=== PATIENT | male | born 2000 | race Caucasian/White ===

== ENCOUNTER 2021-03-25 10:52 | Emergency (ER) | payer SELFPAY ==
[2021-03-25] MEDS ORDERED: Morphine 10 MG/ML VIAL ONE (11:32)
[2021-03-25] MEDS ORDERED: HYDROcodone/Acetaminophen 5/325 mg Tablet ONE (12:20)
== END 2021-03-25 12:24 | disposition home or self-care (01) ==
LOC: BURERS 10:52
DX: M79.5 Residual foreign body in soft tissue (principal); S31.04 Puncture wound with foreign body of lower back and pelvis; W32.0XXD Accidental handgun discharge, subsequent encounter
CPT/HCPCS: 72190; 96372; J2270

== ENCOUNTER 2021-04-14 09:46 | Emergency (ER) | payer OTHER, SELFPAY ==
[2021-04-14 10:31] LABS: #Eosinphils 0.2 thou/uL (0.0-0.7); #Lymphocytes 1.4 thou/uL (1.20-3.40); #Monocytes 0.6 thou/uL (0.11-0.59); #Neutrophils 4.6 thou/uL (1.40-6.50); %Basophils 0.6 % (0.0-1.0); %Eosinophils 2.3 % (0.0-10.0); %Lymphocytes 20.1 % (28.0-48.0); %Monocytes 9.1 % (0.0-4.0); Mean Corpuscular HGB CONC 34.1 g/dL (32.0-36.0); Mean Corpuscular Hemoglobin 30.7 pg (25.0-35.0); Mean Corpuscular Volume 90.1 fL (78.0-98.0); Mean Platelet Volume 6.4 fL (7.4-10.4); Platelet Count 273 thou/uL (130-400); RBC Distribution Width 11.2 % (11.5-14.5); Red Blood Cell (RBC) Count 5.21 mill/uL (4.00-5.20); White Blood Cell (WBC) Count 6.8 thou/uL (4.8-10.8)
[2021-04-14 10:36] LABS: Anion Gap 15 mmol/L (10-20); BUN (Urea Nitrogen) 10 mg/dL (8.9-20.6); Calc. Creatinine Clearance 0 mL/min (70-130); Calcium 10.2 mg/dL (7.8-10.44); Carbon Dioxide 28 mmol/L (22-29); Chloride 100 mmol/L (98-107); Glucose 79 mg/dL (70-105); Potassium 4.1 mmol/L (3.5-5.1); Sodium 139 mmol/L (136-145)
[2021-04-14 11:09] LABS: Bilirubin Negative (Negative); Blood, Urine Negative (Negative); Clarity Clear (Clear); Glucose, Urine (Dipstick) Negative (Negative); Ketone, Urine Trace mg/dL (Negative); Leukocyte Trace (Negative); Nitrite Negative (Negative); Protein, Urine (Dipstick) Negative (Neg-Trace); Urobilinogen 0.2 mg/dL (Less than 2)
[2021-04-14 11:11] LABS: Bacteria/HPF None Seen HPF (None Seen); RBC/HPF 0-3 HPF (0-3); Squamous Epithelial 0-3 HPF (0-3)
[2021-04-14] MEDS ORDERED: cefTRIAXone\\ROCEPHIN 2 GM VIAL ONE (11:23)
[2021-04-14] MEDS ORDERED: Sodium Chloride 0.9% 100 ML ONE (11:24)
[2021-04-14] MEDS ORDERED: Ibuprofen 800 MG TAB ONE (12:11)
[2021-04-14] MEDS ORDERED: traMADol HCl 50 MG TAB ONE (12:11)
== END 2021-04-14 12:07 | disposition home or self-care (01) ==
LOC: BURERS 09:46
DX: R19.00 Intra-abdominal and pelvic swelling, mass and lump, unspecified site (principal); R82.81 Pyuria
CPT/HCPCS: 36415; 74176; 80048; 81003; 81015; 85025; 87086; 96365; J0696; J3490